=== PATIENT | female | born 1955 | race Two or more races ===

== ENCOUNTER 2018-12-06 15:58 | Outpatient (CLI) | payer OTHER | END 2018-12-06 16:21 | disposition home or self-care (01) | LOC: LAB 15:58 | DX: E03.8 Other specified hypothyroidism (principal); D50.8 Other iron deficiency anemias; D51.8 Other vitamin B12 deficiency anemias; Z98.84 Bariatric surgery status; K91.2 Postsurgical malabsorption, not elsewhere classified; I10 Essential (primary) hypertension; D55.0 Anemia due to glucose-6-phosphate dehydrogenase [G6PD] deficiency; D51.1 Vitamin B12 deficiency anemia due to selective vitamin B12 malabsorption with proteinuria; D51.0 Vitamin B12 deficiency anemia due to intrinsic factor deficiency; E06.3 Autoimmune thyroiditis; R97.0 Elevated carcinoembryonic antigen [CEA]; B18.8 Other chronic viral hepatitis; Z11.4 Encounter for screening for human immunodeficiency virus [HIV] ==

== ENCOUNTER 2019-03-09 08:19 | Outpatient (CLI) | payer OTHER | END 2019-03-09 15:00 | disposition home or self-care (01) | LOC: LAB 08:19 | DX: I11.0 Hypertensive heart disease with heart failure (principal); E04.8 Other specified nontoxic goiter; E78.2 Mixed hyperlipidemia; N39.0 Urinary tract infection, site not specified; K76.1 Chronic passive congestion of liver; E55.9 Vitamin D deficiency, unspecified; D69.59 Other secondary thrombocytopenia; D51.1 Vitamin B12 deficiency anemia due to selective vitamin B12 malabsorption with proteinuria; D51.3 Other dietary vitamin B12 deficiency anemia; Z98.84 Bariatric surgery status; K91.2 Postsurgical malabsorption, not elsewhere classified; E06.3 Autoimmune thyroiditis; E03.8 Other specified hypothyroidism; R97.0 Elevated carcinoembryonic antigen [CEA]; D50.8 Other iron deficiency anemias ==

== ENCOUNTER 2020-01-05 07:43 | Outpatient (CLI) | payer OTHER | END 2020-01-05 07:57 | disposition home or self-care (01) | LOC: LAB 07:43 | PROVIDERS: ATTEND Internal Medicine Hematology & Oncology | DX: E04.8 Other specified nontoxic goiter (principal); E78.2 Mixed hyperlipidemia; D69.59 Other secondary thrombocytopenia; D51.1 Vitamin B12 deficiency anemia due to selective vitamin B12 malabsorption with proteinuria; D51.3 Other dietary vitamin B12 deficiency anemia; R97.0 Elevated carcinoembryonic antigen [CEA]; Z98.84 Bariatric surgery status; K91.2 Postsurgical malabsorption, not elsewhere classified; E06.3 Autoimmune thyroiditis; E03.8 Other specified hypothyroidism; D50.8 Other iron deficiency anemias; I10 Essential (primary) hypertension; D51.8 Other vitamin B12 deficiency anemias ==

== ENCOUNTER 2020-10-18 07:14 | Outpatient (CLI) | payer OTHER | END 2020-10-18 07:30 | disposition home or self-care (01) | LOC: LAB 07:14 | PROVIDERS: ATTEND Internal Medicine Hematology & Oncology | DX: E03.8 Other specified hypothyroidism (principal); E06.3 Autoimmune thyroiditis; D50.8 Other iron deficiency anemias; I10 Essential (primary) hypertension; R74.02 Elevation of levels of lactic acid dehydrogenase [LDH]; K76.89 Other specified diseases of liver; D51.8 Other vitamin B12 deficiency anemias; D69.59 Other secondary thrombocytopenia; D51.1 Vitamin B12 deficiency anemia due to selective vitamin B12 malabsorption with proteinuria; D51.3 Other dietary vitamin B12 deficiency anemia; R97.0 Elevated carcinoembryonic antigen [CEA]; Z98.84 Bariatric surgery status; K91.2 Postsurgical malabsorption, not elsewhere classified ==

== ENCOUNTER 2021-02-24 07:47 | Outpatient (CLI) | payer OTHER | END 2021-02-24 15:00 | disposition home or self-care (01) | LOC: LAB 07:47 | PROVIDERS: ATTEND Internal Medicine Hematology & Oncology | DX: D50.0 Iron deficiency anemia secondary to blood loss (chronic) (principal); N30.00 Acute cystitis without hematuria; E78.2 Mixed hyperlipidemia; Z12.31 Encounter for screening mammogram for malignant neoplasm of breast; K62.5 Hemorrhage of anus and rectum; R10.2 Pelvic and perineal pain; D50.8 Other iron deficiency anemias; R79.89 Other specified abnormal findings of blood chemistry; I10 Essential (primary) hypertension; R74.02 Elevation of levels of lactic acid dehydrogenase [LDH]; K76.89 Other specified diseases of liver; D51.8 Other vitamin B12 deficiency anemias; D51.1 Vitamin B12 deficiency anemia due to selective vitamin B12 malabsorption with proteinuria; D69.59 Other secondary thrombocytopenia; D72.818 Other decreased white blood cell count; D51.3 Other dietary vitamin B12 deficiency anemia; R97.0 Elevated carcinoembryonic antigen [CEA]; Z98.84 Bariatric surgery status; K91.2 Postsurgical malabsorption, not elsewhere classified; E06.3 Autoimmune thyroiditis; E03.8 Other specified hypothyroidism ==

== ENCOUNTER 2021-04-23 08:46 | Outpatient (CLI) | payer OTHER | END 2021-04-23 08:51 | disposition home or self-care (01) | LOC: MAMO-SONO 08:46 | PROVIDERS: ATTEND Obstetrics & Gynecology Gynecology | DX: R10.2 Pelvic and perineal pain (principal); Z12.31 Encounter for screening mammogram for malignant neoplasm of breast; N64.4 Mastodynia; E04.1 Nontoxic single thyroid nodule; E04.9 Nontoxic goiter, unspecified; E06.3 Autoimmune thyroiditis ==

== ENCOUNTER 2021-04-23 10:08 | Outpatient (CLI) | payer OTHER | END 2021-04-23 10:12 | disposition home or self-care (01) | LOC: NUCLEAR 10:08 | PROVIDERS: ATTEND Obstetrics & Gynecology Gynecology | DX: R10.2 Pelvic and perineal pain (principal) ==

== ENCOUNTER 2021-08-23 07:38 | Outpatient (CLI) | payer OTHER | END 2021-08-23 07:57 | disposition home or self-care (01) | LOC: LAB 07:38 | PROVIDERS: ATTEND Internal Medicine Hematology & Oncology | DX: D69.59 Other secondary thrombocytopenia (principal); D72.818 Other decreased white blood cell count; D51.1 Vitamin B12 deficiency anemia due to selective vitamin B12 malabsorption with proteinuria; D51.3 Other dietary vitamin B12 deficiency anemia; R97.0 Elevated carcinoembryonic antigen [CEA]; Z98.84 Bariatric surgery status; K91.2 Postsurgical malabsorption, not elsewhere classified; E06.3 Autoimmune thyroiditis; E03.8 Other specified hypothyroidism ==

== ENCOUNTER 2022-04-16 11:46 | Outpatient (CLI) | payer OTHER | END 2022-04-16 11:57 | disposition home or self-care (01) | LOC: RAD 11:46 | PROVIDERS: ATTEND Orthopaedic Surgery | DX: M25.561 Pain in right knee (principal) ==